=== PATIENT | female | born 1985 | race African-American/Black ===

== ENCOUNTER 2020-07-18 08:04 | Inpatient (IN) | payer OTHER ==
[~2020-07-18] VITALS: Ht 167.6 cm; Wt 103.7 kg
[2020-07-18] VITALS (17 sets, daily range): BP systolic 95–130; BP diastolic 46–81
--- NOTE | ~2020-07-18 | HC ---
[facility] [place] [address] CONSULTATION Name: ALIYAH CERON Room #: 242-P ADM IN M.R.#: [id number] Admission: 07/18/20 Attend Phys: Felipe Osman MD Discharge: Date of : 83 Report #: [id number] THIS REPORT FOR: cc: JEANNE - No family physician/PCP JEANNE - No family physician/PCP Benigno Frias MD ~ DATE OF SERVICE: 07/18/2020 HISTORY OF PRESENT ILLNESS: This is a 34-year-old female patient who was evaluated by me for seizure. I talked to Emergency Room physician multiple times and then saw the notes from Dr. Osman. This patient had a seizure in April and then she had two today. From all indication, it looks like a grand mal seizure with a postictal period. She said they were unprovoked seizure. She does not drink alcohol. Since it was the first seizure, she was not started on any anticonvulsant after her last seizure. REVIEW OF SYSTEMS: Indicates she does have a history of depression. She takes Celexa for that, still a small dose. Record indicates that she smokes marijuana, but she gave me a different history that she does not. A 14-point review of system was carried out and it was mostly unremarkable. PAST MEDICAL HISTORY: Negative for seizure before April. FAMILY HISTORY: Positive for seizure in daughter who is 12. SOCIAL HISTORY: She says she does not drink alcohol, to me she says she does not smoke. PHYSICAL EXAMINATION: The patient is alert, responsive, able to follow simple and complex command. She knows what month it is, what hospital she is in. Her cranial nerve examination 2-12 looks unremarkable. She has symmetrical strength, sensation, reflexes and tone in all 4 extremities. There is no meningeal sign. I could not look at the patient's fundus and cardiac examinations appear unremarkable. No respiratory difficulty was noted. She is a reasonably built individual. Her blood pressure is 130/81, respiration is 17, pulse is 92, and temperature is 97.3. LABORATORY DATA: Indicated normal white count. GFR is 62, calcium was a trace high at 10.2. Magnesium is normal. She had a CT scan of the head in the Emergency Room and that was unremarkable. Her urine test was unremarkable. She is getting an EEG done. She was given Keppra in the Emergency Room and folic acid in the Emergency Room. IMPRESSION: I discussed the situation with her. This is a third seizure and I recommended going on Keppra. EEG was normal, but EEG is normal in a significant [address] [address] CONSULTATION Name: ALIYAH CERON Room #: 242-P [facility] IN M.R.#: [id number] Admission: 07/18/20 Attend Phys: Felipe Osman MD Discharge: Date of : 83 Report #: [id number] percentage of the patient with a seizure. I told her that she needs to avoid . She says she plans to have no more children, but she must use some effective contraception and she needs to be aware of the fact that test is not always positive in . I discussed the indication, potential complication, and alternatives of Keppra with this patient. She understands that. She wants to proceed with it. We will put her on folic acid also. She cannot drive at least for 6 months. She needs to follow up with a neurologist. She needs to take other seizure precautions, which were discussed with her. Thank you very much for this referral and if you have any question, please feel free to contact me. By: 1628 04 Benigno Frias MD /nt
--- NOTE | ~2020-07-18 | EEG ---
[facility] [address] ELECTROENCEPHALOGRAM Name: ALIYAH CERON Room #: 242-P [facility] IN M.R.#: [id number] Admission: 07/18/20 Attend Phys: Felipe Osman MD Discharge: 07/19/20 Date of : 83 Report #: [id number] THIS REPORT FOR: //name// DATE OF SERVICE: 07/18/2020 This patient is being evaluated for the possibility of seizure. EEG was done by placing the electrodes by standard 10-20 system of electrode placement. Both referential and sequential montages were used for recording. Background activity in this patient's EEG is about 10 Hz and 30 microvolts. This patient went to sleep that is associated with bilateral slowing and vertex sharp waves. Throughout the record, no active epileptiform activity was noticed. IMPRESSION: This patient's EEG is unremarkable. Thank you very much for this referral. By: 1130 1159 Benigno Frias MD /nt
[~2020-07-18 08:04] MED LIST: IBUPROFEN 600600 M1 PO; NOHOMEMEDICATIONS; PHENERGAN 25 MG25 M1 PO; TRAMADOL 50 MG50 MG PO
[2020-07-18 08:58] LABS: ABSOLUTE NEUTROPHILS 3.5 thou/uL (1.4-8.2); BASOPHILS 0.4 % (0.0-2.0); EOSINOPHILS 1.4 % (0.0-3.0); HEMOGLOBIN 13.9 gm/dL (12.0-15.0); LYMPHOCYTES 43.9 % (24.0-44.0); MCH 29.7 pg (26.0-34.0); MCV 89.8 fL (80.0-100.0); MONOCYTES 5.9 % (1.0-8.0); PLATELET COUNT 350 thou/uL (150-400); POLYS 48.4 % (36.0-66.0); RBC 4.67 mil/uL (4.20-5.00); RDW 14.1 % (10.5-14.5); WBC 7.2 thou/uL (4.0-11.0)
[2020-07-18 09:01] LABS: ANION GAP 16 mmol/L (7-16); BUN 9 mg/dL (7-18); CALCIUM 10.2 mg/dL (8.5-10.1); CHLORIDE 103 mmol/L (98-107); CO2 20 mmol/L (21-32); CREATININE 1.2 mg/dL (0.6-1.0); GLUCOSE 139 mg/dL (74-106); POTASSIUM 3.7 mmol/L (3.5-5.1); SODIUM 139 mmol/L (136-145)
[2020-07-18 09:07] LABS: ALBUMIN 3.6 g/dL (3.4-5.0); DIRECT BILIRUBIN < 0.1 mg/dL (<0.1-0.2); SGOT 17 U/L (15-37); SGPT 20 U/L (14-59); TOTAL BILIRUBIN 0.2 mg/dL (0.2-1.0); TOTAL PROTEIN 7.8 g/dL (6.4-8.2)
--- NOTE | 2020-07-18 09:23 | EKG ---
[place] [address] [facility] [place] [address] ELECTROCARDIOGRAM REPORT Name: ISAK CERONVIRGILIO Brown [facility] [id number] Admission: Attend Phys: Discharge: Date of : 83 Report #: [id number] [facility] ED Test Date: 2020-07-18 Test Time: 08:55:11 Pat Name: ALIYAH CERON Department: Room: Gender: F Distribution [employer] Manager: urvashi : 1985 Requested By: Phong Snell Order Number: [id number] MD: Ken Blair Measurements Intervals [place] Rate: 84 P: 71 VT: 142 QRS: 11 QRSD: 98 T: 18 QT: 372 QTc: 440 Interpretive Statements Sinus rhythm Low voltage, precordial leads No previous ECG available for comparison Electronically Signed On 07-18-2020 9:23:01 [employer] by Ken Blair [email or web address] <ELECTRONICALLY SIGNED> By: Ken Blair MD, [facility] 07/18/20 0923 [phone] Ken Blair MD, FACC /EPI
[2020-07-18 09:40] LABS: URINE BILIRUBIN NEGATIVE (Negative); URINE BLOOD NEGATIVE (Negative); URINE CLARITY SL CLOUDY; URINE COLOR YELLOW; URINE GLUCOSE-RANDOM* NEGATIVE (Negative); URINE KETONES NEGATIVE (Negative); URINE LEUKOCYTES-REFLEX NEGATIVE (Negative); URINE NITRITE-REFLEX NEGATIVE (Negative); URINE PROTEIN (DIPSTICK) NEGATIVE (Negative); URINE UROBILINOGEN 0.2 E.U./dl (0.2-1.0)
[2020-07-18] MEDS ORDERED: CELEXA 10 MG TA10 M1 PO (11:15)
--- NOTE | 2020-07-18 16:53 | NUR ---
ASSUMED CARE OF THE PATIENT AT 1300. SPOKE TO PT'S BOYFRIEND AND MOTHER AT 1330. THE BOYFRIEND HAS CALLED MULTIPLE TIMES SINCE AND WAS TOLD THE PATIENT WAS RESTING. SPOKE TO PT'S MOTHER AT 1600 AND GAVE HER AN UPDATE PER POC. SHE ASKED ME NOT TO WAKE THE PT. I DID GO IN THE PT'S ROOM AND ASK HER TO CALL HER BOYFRIEND BECAUSE HE HAS CALLED MULTIPLE TIMES. SHE CALLED THE BOYFRIEND AT 1600.
[2020-07-19] VITALS (17 sets, daily range): BP systolic 95–116; BP diastolic 52–69
--- NOTE | 2020-07-19 04:22 | NUR ---
PT BEEN RESTING IN NO ACUTE DISTRESS.A/OX4.VSS.ON RA W/O RESP DISTRESS.PT C/O PAIN TO TONGUE,TYLENOL WAS GIVEN WIH SOME RELIEF.C/O PAIN WHILE SWALLOWING.SOME INJURY NOTED TO SIDES OF THE TONGUE,NO ACTIVE BLEEDING.PT SWALLOWS W/O S/SX OF ASPIRATION.NO SEIZURES ACTIVITIES THIS SHIFT.SEIZRE PRECAUTIONS IN PLACE.PT HOPING TO GET DISCHARGED TODAY.MRI SCHEDULED TO BE COMPLETED TODAY.
[2020-07-19] MEDS ORDERED: KEPPRA 500 MG500 M1 PO (08:55)
[2020-07-19] MEDS ORDERED: FOLIC ACID1 MG PO (08:55)
--- NOTE | 2020-07-19 09:30 | NUR ---
DR. SAUER IN EARLIER. PT VERY ANXIOUS, ASKING LOTS OF QUESTIONS RE:BEING ON THE VENTILATOR, LOSS OF CONTROL, LOSS OF POSITIVE CHANNELING OF THOUGHTS & ABILITY TO CONTROL HIS OWN BREATHING. MUCH TIME SPENT W PT. ERNC TO HAVE D/W . PT IS LEANING TOWARDS NO EXTUBATION IF DECISION HAS TO BE MADE. ENC HIM HAVE THIS IN PLACE B/4 AN ACUTE EPISODE HAPPENS (EXPLAINING THAT PT IS MAKING VERY SMALL BUT STEADY PROGRESS). PT DOES NOT FEEL HE IS PROGRESSING.--VW
--- NOTE | 2020-07-19 11:50 | NUR ---
0700-ASSUMED CARE OF PT.PT SLEEPING,ALLOWED TO SLEEP.--VW 1100-PT'S ONLY COMPLAINT IS HER TONGUE HURTS FROM BITING IT YESTERDAY.TONGUE BRUISED,SWOLLEN.TAKING LQDS WELL BUT REFUSED SOLID FOODS. PT TO BE DISCH HOME. 1115-TO MRI VIA W/C W [facility]. TECHS.--VW
== END 2020-07-19 13:45 | disposition home or self-care (01) | DRG 101 ==
LOC: ER 08:04 → EROBS 11:23 → ICU 12:24
PROVIDERS: Emergency Medicine; ADMIT Internal Medicine; ATTEND Internal Medicine
DX: R56.9 Unspecified convulsions (principal); E87.2 Acidosis; F17.210 Nicotine dependence, cigarettes, uncomplicated; F32.9 Major depressive disorder, single episode, unspecified; F41.9 Anxiety disorder, unspecified; F12.90 Cannabis use, unspecified, uncomplicated; Z20.828 Contact with and (suspected) exposure to other viral communicable diseases
CPT/HCPCS: 10078

== ENCOUNTER 2020-08-01 11:58 | Inpatient (IN) | payer OTHER ==
[~2020-08-01] VITALS: Ht 170.2 cm; Wt 104.3 kg
[~2020-08-01 11:58] MED LIST changes: +CELEXA 10 MG TA10 M1 PO; +FOLIC ACID1 MG PO; +KEPPRA 500 MG500 M1 PO
[2020-08-01 12:20] VITALS: BP 107/66
[2020-08-01 13:02] LABS: ABSOLUTE NEUTROPHILS 14.5 thou/uL (1.4-8.2); BASOPHILS 0.3 % (0.0-2.0); EOSINOPHILS 0.1 % (0.0-3.0); HEMATOCRIT 40.2 % (37.0-47.0); HEMOGLOBIN 13.2 gm/dL (12.0-15.0); LYMPHOCYTES 13.9 % (24.0-44.0); MCH 29.3 pg (26.0-34.0); MCHC 32.8 g/dL (28.0-37.0); MCV 89.3 fL (80.0-100.0); MONOCYTES 7.5 % (1.0-8.0); PLATELET COUNT 280 thou/uL (150-400); POLYS 78.2 % (36.0-66.0); RDW 13.8 % (10.5-14.5); WBC 18.6 thou/uL (4.0-11.0)
[2020-08-01 13:03] LABS: CALCIUM 9.6 mg/dL (8.5-10.1); CREATININE 1.1 mg/dL (0.6-1.0); POTASSIUM 3.6 mmol/L (3.5-5.1)
--- NOTE | 2020-08-01 16:47 | NUR ---
34-year-old female presented to the ED for sore throat, fever, chills, and general malaise. Daughter was sick about a month ago with something similar but was unknown what she had. FLUE A&B are negative and COVID PCR is pending. The patient has been admitted for Acute Bacterial tonsillitis and under investigation for COVID 19 and status epilepticus. Per ED documentation the patient is A&O x4 but has a number listed without definition of connection to patient in the chart of Sonya Landry at [phone]. NOTE: Pt was discharged on 07-19-2020 s/p seizure and neuro work up without needs. CM will continue to follow for discharge needs.
[2020-08-01 21:15] VITALS: BP 104/55
--- NOTE | 2020-08-01 21:18 | NUR ---
HANDOFF SENT TO 4TH FLOOR
[2020-08-01 22:15] VITALS: BP 104/55
[2020-08-01 22:23] VITALS: BP 132/71
--- NOTE | 2020-08-02 01:03 | NUR ---
PT ARRIVED FROM THE ER @2220. A&OX4. ADMISSION DONE AND PT ORIENTED TO THE UNIT. DENIES PAIN/N/V ON ASSESSEMENT. IV INTACT WITH FLUIDS AND ABX INFUSING. PT UP AD GENEVIEVE. HOME MEDS RESTARTED. FALL EDUCATION PROVIDED. CLEAR LUNGS SOUNDS. NO FUTHER SIGNS OF DISTRESS. WILL CONT TO MONITOR.
[2020-08-02 01:06] LABS: IgG 1206 mg/dL (586-1602); IgM 82 mg/dL (26-217)
[2020-08-02 04:30] VITALS: BP 119/60
[2020-08-02 06:08] LABS: HEMATOCRIT 38.8 % (37.0-47.0); HEMOGLOBIN 12.6 gm/dL (12.0-15.0); MCH 29.3 pg (26.0-34.0); MCHC 32.4 g/dL (28.0-37.0); MCV 90.3 fL (80.0-100.0); RBC 4.3 mil/uL (4.20-5.00); RDW 14.1 % (10.5-14.5); WBC 15.9 thou/uL (4.0-11.0)
[2020-08-02 06:37] LABS: CALCIUM 9.6 mg/dL (8.5-10.1); POTASSIUM 4.1 mmol/L (3.5-5.1)
[2020-08-02 08:08] VITALS: BP 98/66
--- NOTE | 2020-08-02 08:56 | NUR ---
ASSESSMENT: CM REVIEWED CHART AND SPOKE WITH PT. PT IS ALERT AND ORIENTED X4. PT REPORTS THAT SHE HAD NOT BEEN FEELING WELL THE PAST FEW DAYS AND HAVING WEAKNESS AND SORE THROAT. PT WAS ADMITTED DUE TO TONSILLITIS. PTS COVID TEST WAS NEGATIVE. PT REPORTS LIVING IN A THIRD FLOOR APT WITH HER FAMILY. PT REPORTS 3 FLIGHTS OF [place] WITH HANDRAILS TO ENTER APT. PT REPORTS BEING FULLY INDEPENDENT WITH ADLS AND AMBULATION. PT IS SHOWING PT PAY AND CONFIRMS SHE HAS NO INSURANCE AND IS CURRENTLY UNEMPLOYEED. PT IS TO HAVE ENT EVAL. PT REPORTS NOT HAVING A PCP. CM PROVIDED PATIENT WITH SAFETY NET PACKET AND RESOURCES FOR CARE CLINIC AND OTHER FREE CLINICS IN . CM WILL CONTINUE TO FOLLOW TO ASSIST NEEDED.
[2020-08-02 08:58] VITALS: BP 98/66
[2020-08-02] MEDS ORDERED: MEDROL DOSPAK21 TA1 PO (09:03)
[2020-08-02] MEDS ORDERED: AUGMENTIN 875-1 EACH PO (09:03)
--- NOTE | 2020-08-02 10:00 | NUR ---
PT ASSESSED AT START OF SHIFT. PT STATES BREATHING FINE AND NO C/O SORETHROAT. DR. HERNANDEZ IN EARLY TO SEE PT AND DISCHARGE TO HOME. SCRIPTS SENT TO PHARMACY ELECTRONICALLY. PT TO F/U W/ ENT IN ONE WEEK.
[2020-08-02 13:59] VITALS: BP 98/66
[2020-08-03 17:08] LABS: ANTI-EBNA >600.0 U/mL (0.0-17.9); ANTI-VCA/IgG 31.2 U/mL (0.0-17.9); ANTI-VCA/IgM <36.0 U/mL (0.0-35.9)
--- NOTE | 2020-08-04 07:53 | HC ---
[facility] [place] [address] CONSULTATION Name: ALIYAH CERON Room #: 439-P [facility] IN M.R.#: [id number] Admission: 08/01/20 Attend Phys: Janet Orozco MD Discharge: 08/02/20 Date of : 83 Report #: [id number] THIS REPORT FOR: cc: JEANNE - Janeen family physician/PCP JEANNE - Janeen family physician/PCP Ángel Hardin MD ~ DATE OF SERVICE: 08/01/2020 REASON FOR CONSULTATION: Acute tonsillitis. HISTORY OF PRESENT ILLNESS: The patient is a 34-year-old female presenting to the Emergency Department this afternoon with complaints of a several day history of escalating sore throat to the point she was having difficulty swallowing secretions. She was seen in the ER and diagnosed with an acute streptococcal tonsillitis. Her CRP was 238.5 and a CBC showed a white count of 18,600 with a left shift. Her rapid Strep was negative. Influenza test A and B was negative and her serum electrolytes were otherwise normal except for a slightly elevated creatinine. CT scan of the neck was also done to rule out an abscess. This showed prominent tonsils and adenoids with no evidence of an abscess. Airway was otherwise normal. Some scattered lymph nodes were also noted. Sed rate was also elevated at 55. In light of the above, recommendations were made for admission. She has been seen by the hospitalist and admitted. She was consulted to me for evaluation. In the interim since being in the Emergency Department, she has been treated with Unasyn and Decadron and 2 hours after the Decadron, she is already feeling better. PAST MEDICAL HISTORY: Significant for epilepsy with seizure disorder, history of hysterectomy, history of depression and anxiety. HOME MEDICINES: Include Keppra 500 mg b.i.d. and Celexa 10 mg a day. DRUG ALLERGIES: None. SOCIAL HISTORY: She uses tobacco daily. She does not alcohol or recreational drugs. REVIEW OF SYSTEMS: Consistent with sore throat and difficulty swallowing. Otherwise, 12-point review of systems negative. PHYSICAL EXAMINATION: GENERAL: She is a well-developed 34-year-old female seen in the Emergency Department. She was conversant, feel better with recent treatment. VITAL SIGNS: Show pulse ox 97% on room air, blood pressure 107/66, temperature of 96.4, pulse of 89, respirations 20. HEENT: She is normocephalic. Pupils equal, round, reactive to light. [facility] [address] [place] [address] CONSULTATION Name: ALIYAH CERON Room #: 439-P [facility] IN M.R.#: [id number] Admission: 08/01/20 Attend Phys: Janet Orozco MD Discharge: 08/02/20 Date of : 83 Report #: [id number] exam intact mobile tympanic membrane. No middle ear effusion. Nasal exam is clear. Oral cavity shows acute tonsillitis with hypertrophy. There is a midline airway. NECK: Demonstrates shotty level 2 jugulodigastric adenopathy. NEUROLOGIC: Cranial nerves 2-12 intact. Motor, sensory and cerebellar exams are normal. LUNGS: Clear to auscultation. LABORATORY DATA: CBC again shows white count of 18,000 with left shift. Electrolytes are normal. CT scan was personally reviewed by myself. ASSESSMENT: 1. Acute tonsillitis of several days' duration. This is very consistent with an acute mononucleosis pattern with a secondary bacterial superinfection. Agree with treatment right now either Unasyn or clindamycin. Unasyn would be excluded, which was diagnosed with acute mononucleosis due to a rash with amoxicillin, and we gave clindamycin 900 mg q.i.d. would be a better antibiotic. In addition, Decadron, she has been given 10 mg IV and would rather recommend 8 mg IV q hours for the next 6 doses. 2. Admission for observation. 3. I have suggested we obtain Jonas-Shook virus, IgG and IgM as well as cytomegalovirus IgG and IgM to assess for acute mononucleosis. I have given the patient my card and would expect that she would see me in the next 1-2 weeks as an outpatient in followup. If this is an acute inflammation, this should improve with treatment. If this persists with lingual and tonsillar hypertrophy, would consider biopsy to rule out a lymphoproliferative disorder. I appreciate the consultation and ability to share in her care. I will not plan to follow along with you. I am available for reconsultation if there is any worsening of symptoms. <ELECTRONICALLY SIGNED> By: Ángel Hardin MD 08/04/20 0753 1713 19 Ángel Hardin MD /nt
== END 2020-08-02 09:00 | disposition home or self-care (01) | DRG 153 ==
LOC: ER 11:58 → EROBS 15:14 → 4S 22:15
PROVIDERS: Nurse Practitioner; ADMIT Hospitalist; ATTEND Hospitalist
DX: J03.80 Acute tonsillitis due to other specified organisms (principal); N17.9 Acute kidney failure, unspecified; Z20.822 Contact with and (suspected) exposure to COVID-19; F41.8 Other specified anxiety disorders; B96.89 Other specified bacterial agents as the cause of diseases classified elsewhere; G40.909 Epilepsy, unspecified, not intractable, without status epilepticus; F17.210 Nicotine dependence, cigarettes, uncomplicated; Z79.899 Other long term (current) drug therapy; Z90.710 Acquired absence of both cervix and uterus
CPT/HCPCS: 10195

== ENCOUNTER 2021-06-19 03:31 | Emergency (ER) | payer OTHER ==
[~2021-06-19] VITALS: Ht 170.2 cm; Wt 122.5 kg
--- NOTE | ~2021-06-19 | EMS ---
[facility] [address] [place] [address] EMS Patient Care Report Name: ALIYAH CERON Room #: REG NUHA Jordan#: [id number] Admission: 06/19/21 Attend Phys: Discharge: Date of : 83 Report #: [id number] THIS REPORT FOR: //name// Report Transmitted: 06/19/2021 03:24 EMS Care Summary [place], [place]/[facility] Incident [id number] @ 06/19/2021 02:56 Incident Location [address] [place] [id number] Patient ALIYAH CERON Female, 35 Years 1985 Patient Address [address] [place] [address] Patient History Seizures, Patient Allergies No known allergies, Patient Medications Celexa, Chief Complaint migrain Disposition Transported No Lights/Cabins Dispatch Reason Headache Transported To [facility] Narrative Medic 42 dispatched to a private residence for a green party with a headache. Upon arrival, found pumper 41 crew walking pt out to the ambulance. Pt boarded the ambulance under her own power and was secured with seatbelts. Pt stated that her headache started when she woke up the day prior at approximately 9 am and [facility] [address] [place] [address] EMS Patient Care Report Name: ALIYAH CERON Room #: REG Julian#: [id number] Admission: 06/19/21 Attend Phys: Discharge: Date of : 83 Report #: [id number] had progressively gotten worse. Pt also stated that she "hasn't drank any water in 4 days". Pt was transported to [facility] while vital signs were monitored. Pt walked into the ER under her own power and care of the pt was passed to ER staff without incident. Medic 42 placed in service. Initial Vitals @03:23P: 78,R: 18,BP: 121/62,Pain: 10/10,GCS: 15,CO: 0,SpO2: 98,Revised Trauma: 12, @03:14P: 81,R: 18,BP: 112/46,Pain: 10/10,GCS: 15,CO: 0,SpO2: 99,Revised Trauma: 12, @03:15P: 77,R: 20,BP: 112/76,Pain: 10/10,GCS: 15,SpO2: 100,Revised Trauma: 12, Assessments @03:14MENTAL:Person Oriented,Place Oriented,Event Oriented,Time Oriented,SKIN:HEENT:Head/Face: No Abnormalities,LUNG SOUNDS:ABDOMEN:PELVIS//GI:EXTREMITIES:PULSE:NEURO:No Abnormalities, Impression Migraine Procedures @03:13 ALS Assessment Response: UnchangedSucceeded @03:16 BLS Assessment Response: Unchanged @03:26 Stretcher Response: Unchanged Timeline 02:55,Call Received 02:55,Dispatch Notified 02:56,Dispatched 02:56,En Route 03:08,On Scene 03:08,At Patient 03:13,ALS Assessment,Response: UnchangedSucceeded, 03:14,BP: 112/46 M,PULSE: 81,RR: 18 R,SPO2: 99 Ox,ETCO2: ,BG: ,PAIN: 10,GCS: 15, 03:15,BP: 112/76 M,PULSE: 77,RR: 20 R,SPO2: 100 Ox,ETCO2: ,BG: ,PAIN: 10,GCS: 15, 03:16,BLS Assessment,Response: Unchanged 03:16,Depart Scene 03:23,BP: 121/62 M,PULSE: 78,RR: 18 R,SPO2: 98 Ox,ETCO2: ,BG: ,PAIN: 10,GCS: 15, 03:26,Stretcher,Response: Unchanged 03:28,At Destination 03:50,Call Closed [facility] [address] [place] [address] EMS Patient Care Report Name: ALIYAH CERON Room #: REG [facility].#: [id number] Admission: 06/19/21 Attend Phys: Discharge: Date of : 83 Report #: [id number] Disclaimer v1.1 Copyright 2020 [employer] This EMS Care Summary contains data elements from the applicable legal record (which may be displayed differently). It is designed to provide pertinent information for the following purposes: continuity of care, clinical quality, and state data reporting. The complete legal record is available to ED staff and administrators of the receiving hospital in [employer]'s Patient Tracker. All data is provided "as is."
[~2021-06-19 03:31] MED LIST changes: +AUGMENTIN 875-1 EACH PO; +MEDROL DOSPAK21 TA1 PO
[2021-06-19 05:09] VITALS: BP 120/72
== END 2021-06-19 05:28 | disposition home or self-care (01) ==
LOC: ER 03:31
DX: G43.909 Migraine, unspecified, not intractable, without status migrainosus (principal); F41.9 Anxiety disorder, unspecified; F32.9 Major depressive disorder, single episode, unspecified; F17.210 Nicotine dependence, cigarettes, uncomplicated; Z90.710 Acquired absence of both cervix and uterus; Z79.899 Other long term (current) drug therapy; Z79.891 Long term (current) use of opiate analgesic